=== PATIENT | female | born 2005 | race Caucasian/White ===

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

== ENCOUNTER 2023-03-04 07:45 | Inpatient (IN) | payer MEDICAID, SELFPAY ==
[2023-03-04] VITALS (62 sets, daily range): BP systolic 86–136; BP diastolic 50–80; PULSE 45–202; RESP 17; TEMP 36.1–37.3; O2SAT 82–100; BMI 29.6
[2023-03-04] MEDS: Lactated Ringers 1,000 ML 200 ML IV ×2 (08:13→13:03)
[2023-03-04] MEDS: LACTATED RINGERS 500 ML 999 ML IV ×2 (08:14→09:50)
[2023-03-04 08:41] LABS: Absolute Lymphocyte Count 1.53 X10^3/uL (0.83-4.51); Absolute Neutrophil Count 9.1 X10^3/uL (2.0-7.7); Basophil# 0.01 X10^3/uL; Basophil% 0.1 % (0-1); Eosinophil# 0.13 X10^3/uL; Eosinophils% 1.1 % (0-5); Hemoglobin 11.6 g/dL (12.0-15.0); Lymphocyte # 1.53 X10^3/ul (0.83-4.51); Lymphocyte % 13.1 % (19-41); Mean Corp Hgb Conc 32.2 g/dL (32-36); Mean Corpuscular Hgb 30.1 pg (27.0-32.0); Mean Corpuscular Volume 93.3 fL (81-99); Mean Platelet Vol. 10.6 fl (6.2-12.0); Monocyte# 0.79 X10^3/uL; Monocyte% 6.8 % (0-10); NRBC Flagged by Analyzer 0 % (0-5); Neutrophil # 9.13 X10^3/uL (2.7-7.7); Neutrophil % 78.5 % (47-70); POSITIVE COUNT YES; Platelet Count 291 K/mm3 (150-450); RBC Distribution Width CV 13.9 % (11.6-14.6); RBC Distribution Width SD 46.9 fl (35.1-43.9); Red Blood Count 3.86 M/mm3 (4.2-5.4); White Blood Count 11.6 K/mm3 (4.4-11.0)
[2023-03-04 09:14] LABS: Differential Indicated SCAN CRITERIA MET
[2023-03-04 09:15] LABS: Differential Comment SCANNED; Platelet Estimate ADEQUATE (ADEQ)
--- NOTE | 2023-03-04 09:20 | PCM.HP.OB ---
HPI - General General Date of Admission: 03/04/23 Date of Service: 03/04/23 HPI Narrative WISAM JONES, is a 18 F who presents at 37w1d, in active labor. Presented to labor and delivery with contractions that started at 0300 this am and became more strong and regular. Observation on unit and progressed from 4cm to 5cm and decision for admission. course complicated by chlamydia, anemia, and late care. Maternal Data Information Final ANA: 03/24/23 Gestational age: 37w1d [facility] Medical History (Updated 03/04/23 @ 09:28 by Eileen Quinn CNM) Asthma Home Medications aspirin 81 mg tablet,delayed release mg PO DAILY 03/04/23 [History Last Taken 03/03/23 23:00 81 mg] famotidine 20 mg tablet (Acid Controller) 20 mg PO DAILY heartburn 03/04/23 [History Last Taken 03/03/23 23:00] ferrous sulfate 325 mg (65 mg iron) tablet 325 mg PO DAILY anemia 03/04/23 [History Last Taken 03/03/23] Allergy/AdvReac Type Severity Reaction Status Date / Time pineapple Allergy Severe Food Verified 03/04/23 07:46 Allergy Social History Smoking Status: Never smoker History Elective abortions Hx Para 0 Spontaneous abortions Hx # Term Pregnancies Ectopic pregnancies Hx # Pregnancies Multiple births # of living children NST FHR Rate Baby A Baseline: 110 Variability:: Moderate Accelerations:: 15 x 15 Decelerations:: None FHR Category:: Category I Uterine Activity:: every 1 to 3 minutes, strong ROS Constitutional Constitutional: Reports systems reviewed and no addt'l complaints, except as documented; Denies headache(s) Eyes Eyes: Denies acute decrease in peripheral vision, blurry vision or change in vision ENT HEENT: Reports systems reviewed and no addt'l complaints, except as documented Cardiovascular Cardiovascular: Denies chest pain or dizziness Respiratory/Chest Respiratory/Chest: Denies cough, dyspnea, dyspnea on exertion, shortness of breath at rest or shortness of breath with exertion Gastrointestinal Gastrointestinal: Denies abdominal pain, diarrhea, nausea or vomiting Genitourinary Genitourinary: Denies abdominal discomfort Musculoskeletal Musculoskeletal: Denies limited range of motion Integumentary Integumentary: Reports systems reviewed and no addt'l complaints, except as documented Neurologic Neurologic: Reports systems reviewed and no addt'l complaints, except as documented Psychiatric Psychiatric: Reports systems reviewed and no addt'l complaints, except as documented Endocrine Endocrinology: Reports systems reviewed and no addt'l complaints, except as documented Hematologic/Lymphatic Hematologic/Lymphatic: Reports systems reviewed and no addt'l complaints, except as documented Allergic/Immunologic Allergic/Immunologic: Reports systems reviewed and no addt'l complaints, except as documented Vital Signs Vital Signs Vital Signs: 03/04/23 06:48 03/04/23 06:48 03/04/23 06:51 Temperature Temperature Source Pulse Rate 84 Blood Pressure 125/80 H BP Systolic 125 BP Diastolic 80 Pulse Ox 99 03/04/23 06:51 03/04/23 09:08 03/04/23 09:08 Temperature Temperature Source Temporal Pulse Rate 75 49 L Blood Pressure BP Systolic BP Diastolic Pulse Ox 03/04/23 09:08 03/04/23 09:08 Temperature 97.3 F L Temperature Source Pulse Rate Blood Pressure BP Systolic BP Diastolic Pulse Ox 99 Weight Weight: 151 lb 12.8 oz Body Mass Index (BMI) 29.6 Physical Exam Const alert and oriented x3 General Appearance: cooperative Orientation / Consciousness: awake, oriented to person, oriented to place and oriented to time Exam Limitations: no limitations HEENT normocephalic Head and Scalp: normal to inspection, normocephalic and atraumatic Face and Sinus: normal facial exam Eyes General Eye: normal appearance of both eyes Neck full ROM Chest Chest: symmetrical chest wall rise Resp normal respiratory effort and normal air movement Auscultation: clear to auscultation bilaterally Cardio regular rate, regular rhythm, S1 normal heart sound, S2 normal heart sound, no murmurs, no rub, no gallops and no clicks GI normal to inspection, nondistended, normoactive bowel sounds and non-tender appearance of the vagina normal Bladder / Kidney Exam: no CVA tenderness Manual OB Exam: estimated gestational size appropriate, presentation cephalic, dilated 5cm, effaced 80% and station -3 Amniotic Fluid: no amniotic fluid noted Back/Spine normal ROM Extremity normal to inspection and full ROM Skin no rashes or lesions noted Neuro oriented x3, CN's II-XII intact bilaterally and moves all extremities Sensorium / Orientation: awake, alert and oriented to person Motor Exam: clonus absent Deep Tendon Reflexes: Rt Patellar (L4): 2+ and Lt Patellar (L4): 2+ Labs Labs Labs: Blood Type Pending Antibody Screen Pending Hct 36.0 % (37-47) L Hgb 11.6 g/dL (12.0-15.0) L Syphilis Total Ab Pending Rubella IgG Antibody Pending Hep Bs Antigen Pending HIV 1&2 Antibody Pending HIV negative HBsAG negative Hep C negative RPR negative GBS negative GC negative CT positive 09/27/22, repeat negative 02/23/23 Assessment & Plan (1) Active labor at term: (2) Anemia affecting : (3) Chlamydia infection affecting : COMMENT: Positive 09/26, negative 02/24 (4) 37 weeks gestation of : (5) Late care: PLAN: Plan 1) Admit to labor and delivery 2) Routine labs 3) Planning epidural for pain management, nitrous oxide for relief until placement 4) Continuous EFM 5) GBS negative 6) collaborative physician and notified of patient status
[2023-03-04] MEDS: fentaNYL-bupivacaine (epidural) 100 ML BAG EPIDURAL (09:42)
[2023-03-04 10:15] LABS: HIV - WCH Non-Reactive (Nonreactive); Hepatitis B Surface Antigen Non-Reactive (Nonreactive); Hepatitis C Antibody Non-Reactive (Nonreactive); Rubella IgG Reactive (Nonreactive); Syphilis Antibodies Non-reactive
[2023-03-04] MEDS: Oxytocin 10 UNITS/ML Vial IM (14:36)
[2023-03-04] MEDS: Oxytocin 15 Units/NS 250ml 15 UNITS/250 ML IV.SOLN 83 UNITS IV (14:40)
[2023-03-04] MEDS: Methylergonovine 0.2 MG/ML Ampul IM (14:45)
--- NOTE | 2023-03-04 14:54 | OP.PCM_ITS ---
Assessment & Plan (1) Vaginal delivery: (2) First degree perineal laceration: Vaginal Delivery Maternal Presentation Maternal Presentation: Active Labor Operative Information Date of Procedure: 03/04/23 Pre-Operative Diagnosis: Active labor at term Post-Operative Diagnosis: , first degree perineal laceration Surgery / Procedure Performed: Spontaneous Vaginal Delivery Type of Anesthesia: Epidural Estimated Blood Loss: 450ml Time of Delivery: 14:33 Findings Description of Procedure: Progressed to complete with urge to push. Epidural for pain management. of viable male over first degree perineal laceration. APGARS 8,9 respe ctively. Infant head delivered with body immediately forthcoming. Placed on maternal abdomen, strong cry. Mouth and nares suctioned for secretions. Pitocin started for active 3rd stage management. Cord doubly clamped and cut by FOB after pulsations ceased, delayed cord clamping. Placenta delivered intact via macarena, 3 vessel cord intact. Perineum inspected and revealed 1st degree perineal laceration. Repaired with 3.0 vicryl rapide and epidural. Uterine atony with bleeding, bimanual compression and methergine given Fundus firm and hemostasis achieved. EBL 450 ml. Vaginal sweep completed by me. Sponge and instrument count correct. Mom and baby stable, planning to breastfeed. Family bonding well. Dr. Gunn notified of delivery. Presentation: Vertex and CHAN Amniotic Membrane Rupture Type: Artificial Amniotic Fluid Description: Clear Placental Delivery Description: Expressed Placenta Disposition: [facility] Cord Vessel Description: 3 Vessels Cord Entanglement: None Infant A Gender: Male (1 minute): 8 (5 minute): 9 Delayed Cord Clamping: Yes Post Vaginal Delivery Medications Given After Delivery: IV Pitocin, IM Pitocin and IM Methergin Episiotomy Description: None Laceration: Perineal Extension/lac and 1st degree Complication Complications: - (Uterine atony)
[2023-03-04] MEDS: Acetaminophen 500 MG Tablet 1000 MG PO (16:24)
[2023-03-05] VITALS (11 sets, daily range): BP systolic 83–110; BP diastolic 53–69; PULSE 68–96; RESP 16–18; TEMP 36.6–36.9; O2SAT 94–97
--- NOTE | 2023-03-05 04:25 | PN.OBGYN_ITS ---
Subjective Subjective Doing well per patient and nursing staff. Ambulating and taking PO without difficulty. Voiding and passing flatus. Pain controlled. , services for assistance. Denies headache, visual changes, chest pain, shortness of breath, leg pain or increased bleeding. Lochia normal. Objective Data Objective Data Vital Signs: Vital Signs Temp Pulse Resp BP Pulse Ox O2 Del Method 98.2 F 96 16 109/69 99 Room Air 03/05/23 04:03 03/05/23 04:04 03/05/23 04:03 03/05/23 04:04 03/04/23 16:45 03/05/23 04:03 Oxygen Delivery Method Room Air Weight: 151 lb 12.8 oz Body Mass Index (BMI) 29.6 Intake & Output: Intake and Output for Last 24 Hours 03/03/23 03/04/23 03/05/23 23:59 23:59 23:59 Intake Total 2536.38 / 2536.38 Output Total 2150 / 2150 Balance 386.38 / 386.38 Lab / Micro Data 03/05/23 07:55 Labs: Laboratory Results - last 24 hr 03/04/23 08:15: WBC 11.6 H, RBC 3.86 L, Hgb 11.6 L, Hct 36.0 L, MCV 93.3, MCH 30.1, MCHC 32.2, RDW Std Deviation 46.9 H, RDW Coeff of Vijaya 13.9, Plt Count 291, MPV 10.6, Immature Gran % (Auto) 0.400, Neut % (Auto) 78.5 H, Lymph % (Auto) 13.1 L, [place] % (Auto) 6.8, Eos % (Auto) 1.1, Baso % (Auto) 0.1, Absolute Neuts (auto) 9.1 H, Absolute Lymphs (auto) 1.53, Nucleated RBC % 0, Differential Comment SCANNED, Platelet Estimate ADEQUATE, Syphilis Total Ab Non-reactive, Hep Bs Antigen Non-Reactive, Hepatitis C Antibody Non-Reactive, HIV 1&2 Antibody Non-Reactive, Rubella IgG Antibody Reactive, Blood Type B POSITIVE, Antibody Screen NEGATIVE ROS Constitutional Constitutional: Reports systems reviewed and no addt'l complaints, except as documented; Denies headache(s) Eyes Eyes: Denies acute decrease in peripheral vision, blurry vision or change in vision ENT HEENT: Reports systems reviewed and no addt'l complaints, except as documented Cardiovascular Cardiovascular: Denies chest pain or dizziness Respiratory/Chest Respiratory/Chest: Denies cough, dyspnea, dyspnea on exertion, shortness of breath at rest or shortness of breath with exertion Gastrointestinal Gastrointestinal: Denies abdominal pain, diarrhea, nausea or vomiting Genitourinary Genitourinary: Denies abdominal discomfort Musculoskeletal Musculoskeletal: Denies limited range of motion Integumentary Integumentary: Reports systems reviewed and no addt'l complaints, except as docu mented Neurologic Neurologic: Reports systems reviewed and no addt'l complaints, except as documented Psychiatric Psychiatric: Reports systems reviewed and no addt'l complaints, except as documented Endocrine Endocrinology: Reports systems reviewed and no addt'l complaints, except as documented Hematologic/Lymphatic Hematologic/Lymphatic: Reports systems reviewed and no addt'l complaints, except as documented Allergic/Immunologic Allergic/Immunologic: Reports systems reviewed and no addt'l complaints, except as documented Physical Exam Const alert and oriented x3 General Appearance: cooperative Orientation / Consciousness: awake, oriented to person, oriented to place and oriented to time Exam Limitations: no limitations HEENT normocephalic Head and Scalp: normal to inspection, normocephalic and atraumatic Face and Sinus: normal facial exam Eyes General Eye: normal appearance of both eyes Neck full ROM Chest Chest: symmetrical chest wall rise Resp normal respiratory effort and normal air movement Auscultation: clear to auscultation bilaterally Cardio regular rate, regular rhythm, S1 normal heart sound, S2 normal heart sound, no murmurs, no rub, no gallops and no clicks GI normal to inspection, nondistended, normoactive bowel sounds and non-tender appearance of the vagina normal Bladder / Kidney Exam: no CVA tenderness Back/Spine normal ROM Extremity normal to inspection and full ROM Skin no rashes or lesions noted Neuro oriented x3, CN's II-XII intact bilaterally and moves all extremities Sensorium / Orientation: awake, alert and oriented to person Motor Exam: clonus absent Deep Tendon Reflexes: Rt Patellar (L4): 2+ and Lt Patellar (L4): 2+ Assessment & Plan (1) First degree perineal laceration: (2) Vaginal delivery: PLAN: Plan 1) PPD #1 2) Vitals stable 3) I&O 4) Hgb 9.7, estimated 748ml blood loss, stage 1 PPH. Ferrous sulfate 325mg PO once daily. 5) 6) Planning D/C tomorrow
[2023-03-05 08:06] LABS: Hematocrit 30.7 % (37-47); Hemoglobin 9.7 g/dL (12.0-15.0); Mean Corp Hgb Conc 31.6 g/dL (32-36); Mean Platelet Vol. 10.1 fl (6.2-12.0); Platelet Count 275 K/mm3 (150-450); RBC Distribution Width CV 14.1 % (11.6-14.6); RBC Distribution Width SD 48.9 fl (35.1-43.9); Red Blood Count 3.23 M/mm3 (4.2-5.4); White Blood Count 14.4 K/mm3 (4.4-11.0)
[2023-03-06] MEDS: Naproxen 500 MG Tablet PO (00:20)
[2023-03-06 02:34] VITALS: BP 105/65; PULSE 54; O2SAT 97
[2023-03-06 02:35] VITALS: BP 105/65; PULSE 57; RESP 16; TEMP 36.3; O2SAT 98
--- NOTE | 2023-03-06 06:49 | PCM.PN.OB ---
Subjective Subjective Doing well per patient and nursing staff. Ambulating and taking PO without difficulty. Voiding and passing flatus. Pain controlled. , services for assistance. Denies headache, visual changes, chest pain, shortness of breath, leg pain or increased bleeding. Lochia normal. Objective Data Objective Data Vital Signs: Vital Signs Temp Pulse Resp BP Pulse Ox O2 Del Method 97.4 F L 57 L 16 105/65 98 Room Air 03/06/23 02:35 03/06/23 02:35 03/06/23 02:35 03/06/23 02:35 03/06/23 02:35 03/06/23 02:35 Oxygen Delivery Method Room Air Weight: 151 lb 12.8 oz Body Mass Index (BMI) 29.6 Intake & Output: Intake and Output for Last 24 Hours 03/04/23 03/05/23 03/06/23 23:59 23:59 23:59 Intake Total 2536.38 / 2536.38 Output Total 2150 / 2150 Balance 386.38 / 386.38 Lab / Micro Data 03/05/23 07:55 Labs: Laboratory Results - last 24 hr 03/05/23 07:55: WBC 14.4 H, RBC 3.23 L, Hgb 9.7 L, Hct 30.7 L, MCV 95.0, MCH 30.0, MCHC 31.6 L, RDW Std Deviation 48.9 H, RDW Coeff of Vijaya 14.1, Plt Count 275, MPV 10.1 ROS Constitutional Constitutional: Reports systems reviewed and no addt'l complaints, except as documented; Denies headache(s) Eyes Eyes: Denies acute decrease in peripheral vision, blurry vision or change in vision ENT HEENT: Reports systems reviewed and no addt'l complaints, except as documented Cardiovascular Cardiovascular: Denies chest pain or dizziness Respiratory/Chest Respiratory/Chest: Denies cough, dyspnea, dyspnea on exertion, shortness of breath at rest or shortness of breath with exertion Gastrointestinal Gastrointestinal: Denies abdominal pain, diarrhea, nausea or vomiting Genitourinary Genitourinary: Denies abdominal discomfort Musculoskeletal Musculoskeletal: Denies limited range of motion Integumentary Integumentary: Reports systems reviewed and no addt'l complaints, except as documented Neurologic Neurologic: Reports systems reviewed and no addt'l complaints, except as documented Psychiatric Psychiatric: Reports systems reviewed and no addt'l complaints, except as documented Endocrine Endocrinology: Reports systems reviewed and no addt'l complaints, except as documented Hematologic/Lymphatic Hematologic/Lymphatic: Reports systems reviewed and no addt'l complaints, except as documented Allergic/Immunologic Allergic/Immunologic: Reports systems reviewed and no addt'l complaints, except as documented Physical Exam Const alert and oriented x3 General Appearance: cooperative Orientation / Consciousness: awake, oriented to person, oriented to place and oriented to time Exam Limitations: no limitations HEENT normocephalic Head and Scalp: normal to inspection, normocephalic and atraumatic Face and Sinus: normal facial exam Eyes General Eye: normal appearance of both eyes Neck full ROM Chest Chest: symmetrical chest wall rise Resp normal respiratory effort and normal air movement Auscultation: clear to auscultation bilaterally Cardio regular rate, regular rhythm, S1 normal heart sound, S2 normal heart sound, no murmurs, no rub, no gallops and no clicks GI normal to inspection, nondistended, normoactive bowel sounds and non-tender appearance of the vagina normal Bladder / Kidney Exam: no CVA tenderness Back/Spine normal ROM Extremity normal to inspection and full ROM Skin no rashes or lesions noted Neuro oriented x3, CN's II-XII intact bilaterally and moves all extremities Sensorium / Orientation: awake, alert and oriented to person Motor Exam: clonus absent Deep Tendon Reflexes: Rt Patellar (L4): 2+ and Lt Patellar (L4): 2+ Assessment & Plan (1) First degree perineal laceration: (2) Vaginal delivery: PLAN: Plan 1) Routine PP care 2) vitals stable 3) Pain management 4) support and supplementing with formula 5) D/C home today 6) Follow up in 2 weeks and 6 weeks PP
--- NOTE | 2023-03-06 07:35 | DS.PCM_ITS ---
Providers Date of Admission: 03/04/23 Primary Care Physician: Dr. Jraon Panda MD Reason For Visit: VAGINAL DELIVERY Diagnosis Discharge Diagnosis (1) First degree perineal laceration: Status: Acute Code(s): O70.0 - First degree perineal laceration during delivery (2) Vaginal delivery: Status: Acute Code(s): O80 - Encounter for full-term uncomplicated delivery Plan 1) Routine PP care 2) vitals stable 3) Pain management 4) support and supplementing with formula 5) D/C home today 6) Follow up in 2 weeks and 6 weeks PP Medications at Discharge Home Medications aspirin 81 mg tablet,delayed release mg PO DAILY 03/04/23 famotidine 20 mg tablet (Acid Controller) 20 mg PO DAILY heartburn 03/04/23 ferrous sulfate 325 mg (65 mg iron) tablet 325 mg PO DAILY anemia 03/04/23 Weight / BMI Weight Weight: 151 lb 12.8 oz Body Mass Index (BMI) 29.6 ABG / Lab / Microbiology Data 03/05/23 07:55 Laboratory: Laboratory Results - last 24 hr 03/05/23 07:55: WBC 14.4 H, RBC 3.23 L, Hgb 9.7 L, Hct 30.7 L, MCV 95.0, MCH 30.0, MCHC 31.6 L, RDW Std Deviation 48.9 H, RDW Coeff of Vijaya 14.1, Plt Count 2 75, MPV 10.1 Meaningful Use Info Meaningful Use Diagnoses (Choose all that apply): None applicable Discharge Plan Admission Admit Date/Time: 03/04/23 07:45 Primary Reason for Your Visit: Vaginal delivery Attending Provider: Eileen Quinn Primary Care Provider: Jaron Panda Discharge Orders/Prescriptions Prescriptions: Continued ferrous sulfate 325 mg (65 mg iron) tablet 325 mg PO DAILY No Action aspirin 81 mg tablet,delayed release (DR/EC) PO DAILY famotidine [Acid Controller] 20 mg tablet 20 mg PO DAILY Referrals / Follow Up: Jaron Panda MD [Primary Care Provider] - Disposition Disposition (needs filled in before D/C Order can be placed): Home, Self Care
[2023-03-06 08:04] VITALS: BP 105/59; PULSE 62
[2023-03-06 08:24] VITALS: BP 105/59; PULSE 62; RESP 16; TEMP 36.2
--- NOTE | 2023-03-06 15:34 | CASEMGMT ---
Social Work Assessment Labor and Delivery Unit Patient Address:[address] [place] [address] [address] [place] [address] Phone number: [phone] Date of Referral:03/05/23 Time of Referral:? 740 Referred By: Eileen Quinn Date of Intervention: ??03/06/23 Time of Intervention:? 1429 Reason for Referral:? other and resources History obtained from: medical records and mother of baby (MOB- Shavonne)?and father of baby (FOB- Pasha) Household composition: Residing at home is MOB, FOB, new baby (Jay) and FOJoaquin's other child. Stephon (2 years old) Patient's parent/guardian status:? Parents report that they have known each other for a year. They met on [employer]. AUNG states that they met and hit things off right away, and she stayed the night with FOB one time and he told her she could stay as long as she wanted and she never left. Sw met with MOB separately, she denies abuse and history of domestic violence. - Sw did ask MOB if FOB has been appropriate while at the hospital. MOB stated that he has been a good support for her and only left her side while she was getting the epidural. Sw asked MOB if FOB has made her feel uncomfortable at all with any sexual comments that he has made. - AUNG reports that she went to the restroom with the door open and FOB called in to her how is your pee-pee doing. AUNG stated that she told him it hurt but she did not feel as though that comment was inappropriate. Medical History: This is first and baby for AUNG. AUNG received routine care at [facility]. AUNG delivered baby on 03/05/23 via vaginal delivery. Baby was born at 37 weeks gestation weighing 6lb and 6oz. Baby and MOB are healthy and recovering well. ? Educational Status:?Both parents attended [employer] in high school, both obtained diplomas. Neither attended college courses. Financial Status: AUNG is currently unemployed. NELSON works as a delivery driver assistant for [employer] in [place]. Infant Supplies:??Parents report that they have obtained all necessary baby items including car seat, safe sleep space, clothes, diapers and wipes. Childcare/Caregiver(s): AUNG reports that she will be the primary caregiver to patient. MOB states that if they need a survey data technician either one of the grandma's will be able to provide care to patient. Transportation:?No transportation barriers at this time. MOB reports that both parents have vehicles, but sometimes hers does not always run the best. This is something that she is working on getting fixed. Programs/Agencies Involved: ??No linkage to community resources/ agencies at this time. MOB states that she is interested in getting connected to [facility] and [facility]. Information provided on both resources. ? Children Services/Legal Issues:??? None known, no current issues or concerns at this time to report. Behavioral Health Issues: ?Mental Health History: Both parents deny mental health history. Sw provided education on signs and symptoms of baby blues and post depression. ?Substance Use History:?MOB denies substance use history. Family History:?MOB denies family history. Drug Screens: No drug screens Family/Social Stressors:? MOB denies stressors at this time. MOB states that she is just ready to be discharged and go home. Support Systems: MOB states that both grandma's are supportive and FOB is a support for her. Depression/Shaken Baby/Safe Sleeping: Sw provided education on post depression and baby blues. Sw educated MOB and FOB to never shake a baby and ABCs of safe sleep. Parents expressed understanding. ASSESSMENT:? MOB answered questions and participated in assessment. FOB was asked to step out briefly while sw conducted assessment, he did so willingly. MOB and FOB appreciative of sw involvement and support. MOB receptive to linkage to [facility] after discharge. PLAN:? ?No other services requested or indicated. Madan Murphy, CONVERTIBLE TOP INSTALLER, FARM TRACTOR OPERATOR
[2023-03-06 17:12] VITALS: BP 114/77; PULSE 65
[2023-03-06 17:15] VITALS: BP 114/77; PULSE 65; RESP 16; TEMP 36.8
== END 2023-03-06 18:35 | disposition home or self-care (01) | DRG 560 ==
LOC: WPOUT 07:56 → WP 07:56
PROVIDERS: Admitting Provider Advanced Practice Midwife; PCP Family Medicine; Referring Provider Advanced Practice Midwife; Visit Provider Advanced Practice Midwife
DX: O99.02 Anemia complicating childbirth (principal); Z37.0 Single live birth; K21.9 Gastro-esophageal reflux disease without esophagitis; O62.2 Other uterine inertia; Z3A.37 37 weeks gestation of pregnancy; O70.0 First degree perineal laceration during delivery; O99.62 Diseases of the digestive system complicating childbirth; Z79.82 Long term (current) use of aspirin; Z79.899 Other long term (current) drug therapy
CPT/HCPCS: 59025; 59050; 85025; 85027; 86703; 86762; 86780; 86803; 86850; 86900; 86901; 87340; 99221; J7120; G0378